=== PATIENT | male | born 1985 | race American Indian/Alaskan Native ===

== ENCOUNTER 2020-02-12 13:06 | Emergency (ER) | payer SELFPAY ==
[2020-02-12 13:21] VITALS: BP 149/116
[2020-02-12] MEDS ORDERED: IPRATROPIUM 0.02% NEBU 2.5 ML IH ONE (15:13)
[2020-02-12] MEDS ORDERED: ALBUTEROL 2.5 MG/3 ML NEBU IH ONE (15:13)
[2020-02-12] MEDS ORDERED: SODIUM CHLORIDE 0.9% 1000 ML 1,000 ML IV ONE (15:14)
--- NOTE | 2020-02-12 15:17 | Emergency Department Report ---
ED General Adult HPI - General Chief complaint: Fever Stated complaint: CHEST PAIN/HEADACHE/ABD PAIN Time Seen by Provider: 02/12/20 14:57 Source: patient Mode of arrival: Ambulatory Limitations: No Limitations - History of Present Illness Initial comments: 34-year-old -[place] male no acute distress nontoxic in appearance presents to the emergency room for 1 week of fever, shortness of breath, cough and fatigue. Patient also reports that he had had blood in his stool. Patient admits to shortness of breath with exertion and at times worse when he lies down. He does admit to diarrhea. He does have a past medical history of asthma. 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 He does report of headache sore throat has been taking ibuprofen for the last week. Patient comes in with a low-grade fever 99.2 pulse ox is 96 heart rate is 95 blood pressure 149/116. Had a surgery repair appendectomy. Onset/Timin -: week(s) Severity scale (0 -10): 7 Associated Symptoms: cough, fever/chills, nausea/vomiting, shortness of breath Treatments Prior to Arrival: NSAID - Related Data Previous Rx's Medication Instructions Recorded Last Taken Type Albuterol Sulfate [Proventil Hfa] 6.7 gm IH QID PRN #1 hfa.[email or web address] 02/12/20 Unknown Rx predniSONE [Deltasone] 20 mg PO QDAY 5 Days #5 tab 02/12/20 Unknown Rx Allergies Allergy/AdvReac Type Severity Reaction Status Date / Time No Known Allergies Allergy Unverified 02/12/20 13:19 ED Review of Systems ROS: Stated complaint: CHEST PAIN/HEADACHE/ABD PAIN Other details as noted in HPI Comment: All other systems reviewed and negative ED Past Medical Hx - Past Medical History Previous Medical History?: Yes Hx Asthma: Yes - Surgical History Past Surgical History?: Yes Hx Appendectomy: Yes - Social History Smoking Status: Current Every Day Smoker Substance Use Type: None - Medications Home Medications: Home Medications Medication Instructions Recorded Confirmed Last Taken Type Albuterol Sulfate [Proventil Hfa] 6.7 gm IH QID PRN #1 hfa.aer.ad 02/12/20 Unknown Rx predniSONE [Deltasone] 20 mg PO QDAY 5 Days #5 tab 02/12/20 Unknown Rx ED Physical Exam - General Limitations: No Limitations General appearance: alert, in no apparent distress - Head Head exam: Present: atraumatic, normocephalic - Eye Eye exam: Present: normal appearance - ENT ENT exam: Present: mucous membranes moist - Neck Neck exam: Present: normal inspection - Respiratory Respiratory exam: Present: wheezes - Cardiovascular Cardiovascular Exam: Present: tachycardia - GI/Abdominal GI/Abdominal exam: Present: soft, normal bowel sounds. Absent: distended, tenderness - Rectal Rectal exam: Present: deferred - Back Exam Back exam: Present: normal inspection, full ROM - Neurological Exam Neurological exam: Present: alert, oriented X3, normal gait - Psychiatric Psychiatric exam: Present: normal affect, normal mood - Skin Skin exam: Present: warm, dry, intact, normal color. Absent: rash ED Course Vital Signs 02/12/20 13:19 Temperature 99.2 F Pulse Rate 95 H Respiratory 18 Rate Blood Pressure 149/116 O2 Sat by Pulse 96 Oximetry - Reevaluation(s) Reevaluation #1: 02/12/20 17:25 Patient reports he feels much better after having breathing treatments. ED Medical Decision Making - Lab Data Result diagrams: 02/12/20 15:51 02/12/20 15:51 Laboratory Tests 02/12/20 02/12/20 15:51 15:51 WBC 3.7 L RBC 5.07 H Hgb 16.2 H Hct 47.7 H MCV 94 MCH 32 MCHC 34 RDW 14.0 Plt Count 170 Lymph % (Auto) 41.8 H Gaines % (Auto) 13.6 H Eos % (Auto) 1.9 Baso % (Auto) 0.7 Lymph # 1.5 Gaines # 0.5 Eos # 0.1 Baso # 0.0 Seg Neutrophils % 42.0 Seg Neutrophils # 1.5 L Sodium 139 Potassium 4.1 Chloride 103.3 Carbon Dioxide 23 Anion Gap 17 BUN 13 Creatinine 0.8 Estimated GFR > 60 BUN/Creatinine Ratio 16 Glucose 90 Calcium 8.6 Total Bilirubin 0.40 AST 29 ALT 45 Alkaline Phosphatase 62 Total Protein 6.6 Albumin 4.1 Albumin/Globulin Ratio 1.6 bv - Radiology Data Radiology results: report reviewed Patient Name: ENDER SANTIAGO Gender: Male Date of : 1985 Referring Provider: KELY SMITH Organization: [facility] Accession Number: [id number] Requested Date: February 12, 2020 14:57 Report Status: Final Requested Procedure: 1 Procedure Description: XR chest 1V ap Modality: XR Findings Reporting MD: Ender Roberson Dictation Time: February 12, 2020 14:43 Fisheries Biologist: Not available Front End Specialist Date: CHEST 1 VIEW INDICATION: Cough with fever. COMPARISON: None FINDINGS: Support devices: None. Heart: Within normal limits. Lungs/Pleura: No acute air space or interstitial disease. Additional findings: None. IMPRESSION: No acute findings. Signer Name: Ender Roberson Jr, MD Signed: 02/12/2020 2:43 PM Workstation Name: [id number] - Medical Decision Making 34-year-old -[place] male no acute distress nontoxic in appearance presents to the emergency room for 1 week of fever, shortness of breath, cough and fatigue. Patient also reports that he had had blood in his stool. Patient admits to shortness of breath with exertion and at times worse when he lies down. He does admit to diarrhea. He does have a past medical history of asthma. 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 He does report of headache sore throat has been taking ibuprofen for the last week. Patient comes in with a low-grade fever 99.2 pulse ox is 96 heart rate is 95 blood pressure 149/116. Had a surgery repair appendectomy. Patient is placed on persons of interest until labs and x-rays returns. Patient does have some wheezing will treat with Atrovent and albuterol normal saline magnesium. We will do a guaiac. Did speak to Dr. Dominguez regarding patient complaints and my concerns. Evaluated chest x-ray which shows no acute abnormalities. Patient's labs appear to be stable will treat patient for acute airway disease. Will discharge patient on prednisone 20 mg daily for the next 5 days and pro-air albuterol inhaler. Patient is to follow-up with Dr. Joyce Littlejohn and will refer to colorectal specialist for concern for rectal bleeding. Critical care attestation.: If time is entered above; I have spent that time in minutes in the direct care of this critically ill patient, excluding procedure time. ED Disposition Clinical Impression: Reactive airway disease with acute exacerbation, Fever, Shortness of breath, Generalized body aches Disposition: DC-01 TO HOME OR SELFCARE Is pt being admited?: No Does the pt Need Aspirin: No Condition: Stable Instructions: Reactive Airways Disease (ED) Additional Instructions: Chest x-ray is negative for any acute findings. Labs are stable shows no acute infection. Stool check for blood was negative. I recommend to take prednisone for the next 5 days as prescribed. Use albuterol inhaler as needed. Increase your water intake. Take Tylenol or ibuprofen as needed for body aches and fever. Follow-up with a primary care provider and a colorectal specialist I have listed their information below for your convenience. Prescriptions: predniSONE [Deltasone] 20 mg PO QDAY 5 Days #5 tab Albuterol Sulfate [Proventil Hfa] 6.7 gm IH QID PRN #1 hfa.aer.ad PRN Reason: Wheezing Referrals: PRIMARY CARE, [Primary Care Provider] - 3-5 Days JESSICA LOEPZ MD [Staff Physician] - 3-5 Days [facility] [Provider Group] - 3-5 Days [facility] [Provider Group] - 3-5 Days Forms: Work/School Release Form(ED)
[2020-02-12] MEDS ORDERED: MAGNESIUM SULFATE 2 GM/50 ML BAG IV ONE (15:20)
[2020-02-12 16:05] LABS: Basophils % (Auto) 0.7 % (0.0-1.8); Eosinophils # (Auto) 0.1 K/mm3 (0.0-0.4); Eosinophils % (Auto) 1.9 % (0.0-4.3); Hematocrit 47.7 % (35.5-45.6); Hemoglobin 16.2 gm/dl (11.8-15.2); Lymphocytes # (Auto) 1.5 K/mm3 (1.2-5.4); Lymphocytes % (Auto) 41.8 % (13.4-35.0); Mean Corpuscular HGB Conc 34 % (32-34); Mean Corpuscular Volume 94 fl (84-94); Monocytes # (Auto) 0.5 K/mm3 (0.0-0.8); Monocytes % (Auto) 13.6 % (0.0-7.3); Platelet Count 170 K/mm3 (140-440); Red Blood Count 5.07 M/mm3 (3.65-5.03)
[2020-02-12 16:25] LABS: Alanine Aminotransferase 45 units/L (7-56); Albumin 4.1 g/dL (3.9-5); BUN/Creatinine Ratio 16; Blood Urea Nitrogen 13 mg/dL (9-20); Calcium 8.6 mg/dL (8.4-10.2); Hemolysis Index 5
[2020-02-12] MEDS ORDERED: dexAMETHasone 20 MG/5 ML VIAL IV ONE (16:37)
== END 2020-02-12 17:27 | disposition home or self-care (01) ==
LOC: ED 13:06
DX: J45.901 Unspecified asthma with (acute) exacerbation (principal); R50.9 Fever, unspecified; R06.02 Shortness of breath; R52 Pain, unspecified; F17.200 Nicotine dependence, unspecified, uncomplicated; Z90.49 Acquired absence of other specified parts of digestive tract; Z79.899 Other long term (current) drug therapy
CPT/HCPCS: 36415; 71045; 80053; 82271; 85025; 94640; 96365; 96375; 99284; J1100; J3475; J7030